=== PATIENT | female | born 1985 | race Caucasian/White ===

== ENCOUNTER 2019-01-13 11:49 | Emergency (ER) | payer OTHER ==
[~2019-01-13] VITALS: Ht 165.1 cm; Wt 69.9 kg
[2019-01-13] MEDS ORDERED: TIROSINT125 MCG (12:05)
[2019-01-13] MEDS ORDERED: NAPROXEN500 MG PO (14:10)
== END 2019-01-13 15:50 | disposition home or self-care (01) ==
LOC: ER 11:49 → EDBD 12:22 → ER 15:50
DX: M25.561 Pain in right knee (principal); M79.661 Pain in right lower leg